=== PATIENT | male | born 1955 | race Caucasian/White ===

== ENCOUNTER → 2021-04-06 | Outpatient (CLI) | payer MEDICARE ==
[2021-04-06] MEDS: IOHEXOL 350 MG/ML 100 ML VIAL. IV ONE (08:15)
[2021-04-06 08:33] LABS: CREATININE 1.6 mg/dL (0.7-1.3); GFR 43.6
--- NOTE | 2021-04-06 09:38 | RAD ---
CT abdomen and pelvis without and with contrast PQRS statement: CT scans at this facility use dose reduction including either automated exposure cont rol, iterative reconstructions, and /or weight based radiation dosing via mA and kV modification when appropriate to reduce radiation dose to as low as reasonably achievable. HISTORY: Bladder cancer. Malignant neoplasm of the bladder. Contrast: Pre and postcontrast CT imaging with early nephrogram and delayed urogram postcontrast phas es with a total of 75 mL of opaque 350 intravenous contrast. Abdomen findings: No urinary calculi. No hydronephrosis. 2.5 cm left renal lower pole parapelvic cyst . No solid enhancing renal mass. There is very mild bilateral perinephric edema. Contrast filling wit hout urothelial thickening or mass, stricture or obstruction of the renal calyces, pelves or ureters down to the bladder. There is incomplete filling of the lower right ureter above the bladder likely d ue to active urinary excretion and peristalsis of the ureter. No abdominal fluid or adenopathy. 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 Pancreas, adrenals, spleen, liver, gallbladder unremarkable. No obstruction or inflammation the GI tract. Appendix is negative. Mild sig moid colonic diverticulosis. Lumbar disc bulges and facet spurring with spinal canal and neural zenaida inal stenoses at several levels. Lung bases are unremarkable. Pelvis findings: No bladder calculi. There is incomplete contrast distention of the nondependent ante rior bladder lumen may decrease sensitivity to detect subtle filling defects. In light of this there is no discrete bladder mass or bladder wall thickening evident. 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 Rectum and bones are unremarkable. No pelvic fluid or adenopathy. IMPRESSION: 1. No urinary calculi or hydronephrosis. There is no discrete mass lesion of the urinary collecting s ystem. No hydronephrosis. See above. 2. 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 See above. 3. 2.5 cm left renal parapelvic cyst. Electronically signed by: Ryan Alejandre MD (04/06/2021 9:36 AM) [facility]
== END ==
LOC: CT 07:56
PROVIDERS: ATTEND Specialist
DX: N28.1 Cyst of kidney, acquired (principal); K57.30 Diverticulosis of large intestine without perforation or abscess without bleeding; N32.89 Other specified disorders of bladder; M51.26 Other intervertebral disc displacement, lumbar region; M48.062 Spinal stenosis, lumbar region with neurogenic claudication; M46.06 Spinal enthesopathy, lumbar region
CPT/HCPCS: 36415; 74178; 82565; 84520; Q9967